=== PATIENT | female | born 1970 | race Caucasian/White ===

== ENCOUNTER 2017-01-06 14:40 | Outpatient (CLI) | payer OTHER | END 2017-01-06 18:57 | disposition home or self-care (01) | LOC: SMA 14:40 | PROVIDERS: ATTEND Family Medicine | DX: Z12.31 Encounter for screening mammogram for malignant neoplasm of breast (principal) | CPT/HCPCS: 77067; G0202 ==

== ENCOUNTER 2017-08-04 09:50 | Outpatient (CLI) | payer OTHER | END 2017-08-04 19:28 | disposition home or self-care (01) | LOC: SRD 09:50 | PROVIDERS: ATTEND Family Medicine | DX: M17.0 Bilateral primary osteoarthritis of knee (principal) ==

== ENCOUNTER 2019-03-17 07:04 | Day surgery (SDC) | payer BC ==
[~2019-03-17] VITALS: Ht 167.6 cm; Wt 108.0 kg
[2019-03-17 08:37] LABS: HCG,QUAL RESULT NEGATIVE (NEGATIVE)
[2019-03-17] MEDS ORDERED: LR 1,000 ML IV SCH (09:24)
[2019-03-17] MEDS ORDERED: NS 1000 ML IV.SOLN IV ONE (09:30)
[2019-03-17] MEDS ORDERED: LR 1,000 ML IV.SOLN IV ONE (09:30)
[2019-03-17] MEDS ORDERED: MIDAZOLAM HCL 5 MG/ML VIAL (VERSED) IV ONE (09:30)
[2019-03-17] MEDS ORDERED: MORPHINE 4 MG/ML INJ. SYRINGE IVP PRN ×3 (09:30)
[2019-03-17] MEDS ORDERED: NS IRRIG SOLN 1000 ML IR ONE (09:30)
[2019-03-17] MEDS ORDERED: KETOROLAC TROMETHAMINE 30 MG VIAL ONE (09:30)
[2019-03-17] MEDS ORDERED: PROPOFOL 200MG/ 20ML VIAL (DIPRIVAN) IV ONE (09:30)
[2019-03-17] MEDS ORDERED: fentaNYL CITRATE/PF 100 MCG/2 ML AMP ONE (09:30)
[2019-03-17] MEDS ORDERED: ONDANSETRON HCL 4 MG/2 ML VIAL ONE (09:30)
[2019-03-17] MEDS ORDERED: ROCURONIUM BROMIDE 10 MG/ML (ZEMURON) ONE (09:30)
[2019-03-17] MEDS ORDERED: SEVOFLURANE 15 MIN GAS INH ONE (09:30)
[2019-03-17] MEDS ORDERED: HYDROcodone/ACETAMIN 5-325 MG TAB (NORCO/ VICODIN) PO PRN (09:45)
[2019-03-17] MEDS ORDERED: ONDANSETRON HCL 4 MG/2 ML VIAL IVP PRN (09:45)
[2019-03-17] MEDS ORDERED: OXYCODONE/ACETAMINOPHEN 5-325 TABLET PO PRN (09:45)
[2019-03-17 11:05] VITALS: BP_SYST 124
== END 2019-03-17 12:08 | disposition home or self-care (01) ==
LOC: SDS 07:04 → SMU 07:04 → SDS 12:08
PROVIDERS: ATTEND Specialist
DX: C54.1 Malignant neoplasm of endometrium (principal); N95.0 Postmenopausal bleeding; Z68.38 Body mass index [BMI] 38.0-38.9, adult; Z98.890 Other specified postprocedural states; Z79.899 Other long term (current) drug therapy; E66.01 Morbid (severe) obesity due to excess calories
CPT/HCPCS: 58558; 84703; 88305; 93005; J1885; J2250; J2405; J2704; J3010; J7030; J7120

== ENCOUNTER 2019-06-16 10:24 | Outpatient (CLI) | payer BC | END 2019-06-16 20:33 | disposition home or self-care (01) | LOC: SMA 10:24 | PROVIDERS: ATTEND Obstetrics & Gynecology | DX: R92.1 Mammographic calcification found on diagnostic imaging of breast (principal) | CPT/HCPCS: 76642; 77066 ==